=== PATIENT | male | born 1975 | race African-American/Black ===

== ENCOUNTER 2018-04-13 09:23 | Observation (INO) | payer OTHER ==
[~2018-04-13] VITALS: Ht 195.6 cm; Wt 65.1 kg
[2018-04-13] MEDS ORDERED: ASPIRIN 325 MG TAB PO ONE (09:45)
[2018-04-13] MEDS ORDERED: NITROGLYCERIN 0.4 MG SUBL SL PRN ×2 (09:45→12:15)
[2018-04-13 09:57] LABS: BASOPHILS % 0.6 % (0.0-1.0); EOSINOPHILS # (AUTO) 0.1 (0.0-0.4); EOSINOPHILS % 1.4 % (0.0-6.0); HEMATOCRIT 43.4 % (38.2-49.6); HEMOGLOBIN 14.4 g/dL (14.0-18.0); LYMPHOCYTES # (AUTO) 1.9 (1.0-3.2); LYMPHOCYTES % 52.8 % (18.0-39.1); MEAN CORPUSCULAR HEMOGLOBIN 28.4 pg (28-32); MEAN CORPUSCULAR HGB CONC 33.2 g/dL (31-35); MEAN CORPUSCULAR VOLUME 85.6 fL (81-99); MONOCYTES # (AUTO) 0.3 (0.2-0.8); MONOCYTES % 8.7 % (4.4-11.3); NEUTROPHILS # (AUTO) 1.3 (2.1-6.9); NEUTROPHILS % 36.2 % (38.7-80.0); PLATELET COUNT 191 x10e3/uL (140-360); RED BLOOD COUNT 5.07 x10e6/uL (4.3-5.7); RED CELL DISTRIBUTION WIDTH 12.5 % (11.7-14.4)
[2018-04-13 10:11] LABS: ALANINE AMINOTRANSFERASE 21 IU/L (0-55); ALBUMIN/GLOBULIN RATIO 1.2 (0.8-2.0); ALKALINE PHOSPHATASE 71 IU/L (40-150); ANION GAP 13.9 mmol/L (8-16); BLOOD UREA NITROGEN 15 mg/dL (7-26); BUN/CREATININE RATIO 12 (6-25); CALCIUM 8.5 mg/dL (8.4-10.2); CARBON DIOXIDE 24 mmol/L (22-29); CHLORIDE 100 mmol/L (98-107); CHOL/HDL RATIO 4.5 (3.9-4.7); CHOLESTEROL 224 MD/DL (0-199); CREATININE, SERUM 1.22 mg/dL (0.72-1.25); EST GLOMERULAR FILTRATION RATE > 60 ML/MIN (60-); GLUCOSE 105 mg/dL (74-118); HDL CHOLESTEROL 50 MG/DL (40-60); LDL CHOLESTEROL 155 MG/DL (60-130); POTASSIUM 3.9 mmol/L (3.5-5.1); SODIUM 134 mmol/L (136-145); TRIGLYCERIDES 97 MG/DL (0-149)
--- NOTE | 2018-04-13 10:26 | Diagnostic Imaging Report ---
PROCEDURE: Frontal and lateral views of the chest. COMPARISON: None. INDICATIONS: CHEST PAIN, HIGH BLOOD PRESSURE FINDINGS: Lines/tubes: None. Lungs: The lungs are well inflated and clear. There is no evidence of pneumonia or pulmonary edema. Pleura: There is no pleural effusion or pneumothorax. Heart and mediastinum: The heart and the mediastinum are normal. Bones: No acute bony abnormality. IMPRESSION: 1. No acute cardiopulmonary abnormalities. Calixto Mercedes M.D. Dictated by: Calixto Mercedes M.D. on 04/13/2018 at 10:35 Electronically approved by: Calixto Mercedes M.D. on 04/13/2018 at 10:35
[2018-04-13] MEDS ORDERED: ACETAMINOPHEN 325 MG TAB PO ONE (10:45)
[2018-04-13 10:56] LABS: INR 0.88; PROTHROMBIN TIME 12.8 seconds (11.9-14.5)
[2018-04-13 10:57] LABS: PARTIAL THROMBOPLASTIN TIME 30.4 seconds (23.8-35.5)
[2018-04-13] MEDS ORDERED: NITROGLYCERIN 2% OINT 1 GM PKT TOP ONE (11:00)
[2018-04-13] MEDS ORDERED: ACETAMINOPHEN 325 MG TAB PO PRN (12:15)
[2018-04-13] MEDS ORDERED: MORPHINE SULFATE 2 MG/ML SYR IV PRN (12:15)
--- OUTSIDE RECORDS SUMMARY | 2018-04-13 12:29 | XMS REPORT ---
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 Allergies, Adverse Reactions, Alerts This patient has no known allergies or adverse reactions. Medications This patient has no known medications. Results Test Description Test Time Test Comments Text Results Atomic Results Result Comments CHEST 2 VIEWS 2018-04-13 10:35:00 [place] [id number] Patient Name: NENA MONTEZ MR #: [id number] : 1975 Age/Sex: 43/M Req #: [id number] Adm Physician: Ordered by: TANYA KIM MD Report #: [id number] Location: ER Room/Bed: Procedure: [id number] DX/CHEST 2 VIEWS Exam Date: 04/13/18 Exam Time: 1010 REPORT STATUS: Signed PROCEDURE: Frontal and lateral views of the chest. COMPARISON: None. INDICATIONS: CHEST PAIN, HIGH BLOOD PRESSURE FINDINGS: Lines/tubes: None. Lungs: The lungs are well inflated and clear. There is no evidence of pneumonia or pulmonary edema. Pleura: There is no pleural effusion or pneumothorax. Heart and mediastinum: The heart and the mediastinum are normal. Bones: No acute bony abnormality. IMPRESSION: 1. No acute cardiopulmonary abnormalities. Dion Flood M.D. Dictated by: Dion Flood M.D. on 04/13/2018 at 10:35 Electronically approved by: Dion Flood M.D. on 04/13/2018 at 10:35 Dictated By: DION FLOOD MD [id number] Transcribed By: URSULA on 04/13/18 1035 COPY TO: TANYA KIM MD
[2018-04-13] MEDS ORDERED: LISINOPRIL 20 MG TAB PO NR (14:15)
[2018-04-13 14:58] VITALS: BP 135/90
[2018-04-13] MEDS ORDERED: LISINOPRIL 10 MG TAB PO NR (15:00)
--- NOTE | 2018-04-13 15:12 | Consultation ---
DATE OF CONSULTATION: April 13, 2018 CARDIOLOGY CONSULTATION REASON FOR CONSULTATION: Chest pain. CHIEF COMPLAINT: Chest pain. HISTORY OF PRESENT ILLNESS: Patient is a 43-year-old man with history of hypertension, used to take lisinopril but stopped taking it for several years now, who presents with chest pain. Pain is substernal, intermittent, feels like a small twinge on the left side of his chest with no significant alleviating or exacerbating factors. Pain is not exertional, nonpositional. 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 No prior history of cardiovascular issues. FAMILY HISTORY: No family history of early CAD or sudden cardiac . Family history positive for hypertension, diabetes and strokes. SOCIAL HISTORY: Patient does not smoke, drinks occasionally, does not use illicit drugs. REVIEW OF SYSTEMS: Ten-point review of systems was performed. Is as per the history of present illness, otherwise negative. OUTPATIENT MEDICATIONS: None. ALLERGIES: PLEASE REVIEW CHART. PHYSICAL EXAMINATION: VITALS: Temperature afebrile, pulse 66, respiratory rate 14, blood pressure 156/104, satting 100% on room air. GENERAL: Well-developed, well-nourished young man, no acute distress. CARDIOVASCULAR: Regular rate and rhythm. No murmurs, rubs, or gallops. Palpable carotid pulses. Palpable radial pulses. No lower extremity edema or varicosities or ulcerations. LUNGS: Clear to auscultation bilaterally. No respiratory distress. ABDOMEN: Soft, nontender, nondistended. No masses. NEURO AND PSYCH: Alert and oriented to person, place, and time. Normal affect. INPATIENT MEDICATIONS: Reviewed. LABORATORY DATA: Reviewed. Notable for negative cardiac enzymes times 1. IMAGING DATA: Reviewed. Shows normal chest x-ray. ELECTROCARDIOGRAM: Reviewed. Shows normal sinus rhythm with borderline LVH. ASSESSMENT AND PLAN: 1. Atypical chest pain. 2. Hypertension. PLAN: Will plan to resume his outpatient lisinopril and get an echocardiogram to rule out for acute MT with serial cardiac enzymes and EKGs. Will reassess in the morning. Given that he does not have significant risk factors and chest pain is atypical, no further risk stratification is needed unless cardiac enzymes are positive or echocardiogram is abnormal. Thank you for this consult. Will continue to follow. Job#: [id number] EV
[2018-04-13 15:40] VITALS: BP 135/90
[2018-04-13 18:23] LABS: CREATINE KINASE MB 2.1 ng/mL (0-5.0)
[2018-04-13 20:00] VITALS: BP 132/89
[2018-04-13 22:37] VITALS: BP 132/89
[2018-04-14] VITALS: BP 131/87
[2018-04-14 01:24] LABS: CREATINE KINASE MB 1.8 ng/mL (0-5.0)
[2018-04-14 04:00] VITALS: BP 127/82
--- NOTE | 2018-04-14 05:14 | History and Physical ---
REASON FOR ADMISSION: Chest pain. HISTORY OF PRESENT ILLNESS: Patient said he had some vague chest pain prior to admission, but none since admission without associated shortness of breath. He is being admitted for further evaluation and treatment. PAST MEDICAL HISTORY: Hypertension. MEDICATIONS: See MAR. ALLERGIES: NONE. SOCIAL HISTORY: Nonsmoker and nondrinker. FAMILY HISTORY: Hypertension. REVIEW OF SYSTEMS: Negative for fever, chills, nausea, vomiting, dizziness, headache, shortness of breath. PHYSICAL EXAMINATION VITALS: 96.9, pulse 54, blood pressure 131/87, sats 99% on room air. ASSESSMENT AND PLAN 1. Chest pain: Rule out myocardial infarction. Will consult cardiology. 2. Hypertension: Continue with lisinopril. 3. Hyperlipidemia: Encourage the patient to have a low fat diet. 4. Leukopenia: Will continue to monitor. Please see hospital chart for details. Job#: [id number] NM
[2018-04-14 05:40] LABS: CREATINE KINASE MB 2.2 ng/mL (0-5.0)
[2018-04-14 05:59] LABS: CHOL/HDL RATIO 4.9 (3.9-4.7)
[2018-04-14 07:43] VITALS: BP 131/84
[2018-04-14] MEDS ORDERED: INFLUENZA VIRUS VAC SPLIT INJ 0.5 ML SYR IM ONE (09:00)
[2018-04-14] MEDS ORDERED: ASPIRIN 325 MG TAB EC PO SCH (09:00)
[2018-04-14] MEDS ORDERED: LISINOPRIL 20 MG TAB PO SCH (09:00)
[2018-04-14] MEDS ORDERED: LISINOPRIL 10 MG TAB PO SCH (09:00)
[2018-04-14 11:18] VITALS: BP 142/93
--- NOTE | 2018-04-14 13:31 | Progress Note ---
DATE: April 14, 2018 CARDIOLOGY PROGRESS NOTE SUBJECTIVE: The patient has no further chest pain and denies any shortness of breath, palpitations or near syncopal symptoms. OBJECTIVE VITALS: Temperature is 96.2, heart rate 64, respiratory rate 21, blood pressure 131/84, oxygen saturation 97% on room air. GENERAL: He is a well-appearing, well-built, man lying comfortably in bed in no apparent distress. CARDIOVASCULAR: Regular rate and rhythm. No murmurs. Normal S1 and S2. LUNGS: Clear to auscultation. ABDOMEN: Soft, nontender and nondistended. NEUROLOGIC: No focal deficits noted. VASCULAR: 2+ pulses. EXTREMITIES: No edema. Echocardiogram showed normal left ventricular size and function with an estimated ejection fraction of 55%. Telemetry monitoring revealed normal sinus rhythm with rare premature atrial and premature ventricular complexes. All other laboratory and imaging data were reviewed. IMPRESSION AND RECOMMENDATIONS 1. Precordial pain. 2. Hypertension. 3. Hyperlipidemia. 4. Premature atrial and premature ventricular complexes. RECOMMENDATIONS: The patient ruled out for acute myocardial infarction. He is hemodynamically stable, and blood pressure and heart rate are well controlled on current regimen. Continue diet and risk factor modification for his hyperlipidemia. His echocardiogram showed normal left ventricular function. The patient is stable from cardiovascular standpoint for discharge with outpatient stress testing. Job#: [id number]
== END 2018-04-14 13:10 | disposition home or self-care (01) ==
LOC: ER 09:23 → ERHOLD 12:16 → IMCU 15:00
PROVIDERS: ADMIT Internal Medicine; ATTEND Internal Medicine
DX: R07.2 Precordial pain (principal); I49.1 Atrial premature depolarization; I10 Essential (primary) hypertension; E87.1 Hypo-osmolality and hyponatremia; E78.5 Hyperlipidemia, unspecified; D72.819 Decreased white blood cell count, unspecified
CPT/HCPCS: 36415; 71046; 80053; 80061 ×2; 82550 ×2; 82553 ×2; 83735; 83880; 84484 ×2; 85025; 85379; 85610; 85730; 93306; 99284; G0378 ×2